=== PATIENT | female | born 1970 | race Hispanic/Latino ===

== ENCOUNTER 2021-03-28 02:18 | Emergency (ER) | payer OTHER ==
[2021-03-28 03:23] VITALS: BP 156/79
--- NOTE | 2021-03-28 04:36 | XRay Report ---
Right hip-2 views INDICATION: right hip pain. COMPARISON: None. IMPRESSION: No acute osseous abnormality. Soft tissues are normal. Normal alignment. No significa nt DJD. Signer Name: Rober Heredia MD Signed: 03/28/2021 4:31 AM Workstation Name: [id number]
--- NOTE | 2021-03-28 04:37 | XRay Report ---
Lumbar spine-3 views INDICATION: lower back pain. COMPARISON: None. IMPRESSION: Normal alignment. Mild multilevel discogenic DJD. No acute osseous or soft tissue abno rmality. Signer Name: Rober Heredia MD Signed: 03/28/2021 4:33 AM Workstation Name: [id number]
--- NOTE | 2021-03-28 05:13 | Emergency Department Report ---
ED Fall HPI - General Chief Complaint: Fall Stated Complaint: FALL AT WORK Source: patient Mode of arrival: Ambulatory - History of Present Illness Initial Comments: Patient is a 50-year-old white female with a history of morbid obesity, chronic osteoarthritis, chronic degenerative disc disease, hypertension, anxiety and depression who presents to the ED with complaint of acute onset severe low back pain and right hip pain after she tripped on an vital signs monitor at work in [facility] about 4 hours ago, and in the process landed on her right hip and lower back. Patient states that although she is ambulatory, the pain is especially worse with movement or ambulation. Patient denies head or neck injuries, loss of consciousness, dizziness, syncope, seizures, chest pain, shortness of breath, numbness and tingling or weakness of lower extremities bilaterally, urinary retention, bowel incontinence, saddle paresthesia, vaginal bleeding or hematuria. MD Complaint: fall, other (Right hip and low back pain) -: Sudden, hour(s) (4) Fall From: standing When Fall Occurred: 4-6 hours [employer] Fall Witnessed: yes, by living facility s Place Fall Occurred: work Loss of Consciousness: none Prolonged Down Time?: no Symptoms Prior to Fall: none Location: pelvis (Right hip), buttocks Severity: severe Severity scale (0 -10): 7 Quality: sharp, aching Context: tripped/slipped Associated Symptoms: denies. denies: headache, neck pain, numbness, weakness, chest paint, shortness of breath, abdominal pain, hematuria, lightheaded, vertigo, confusion - Related Data Previous Rx's Medication Instructions Recorded Last Taken Type HYDROcodone/APAP 5-325 [Burket 1 each PO Q6HR PRN #12 tablet 10/26/16 Unknown Rx 5/325] Ibuprofen [Motrin] 600 mg PO Q8H PRN #20 tablet 10/26/16 Unknown Rx Baclofen 20 mg PO Q12H PRN #20 tablet 03/28/21 Unknown Rx traMADoL [Ultram] 50 mg PO Q6HR PRN #12 tablet 03/28/21 Unknown Rx Allergies Allergy/AdvReac Type Severity Reaction Status Date / Time codeine Allergy HIVES / Verified 10/26/16 08:14 "CRAZY" NSAIDS (Non-Steroidal Allergy Itching Verified 03/28/21 03:34 Anti-Inflamma ED Review of Systems ROS: Stated complaint: FALL AT WORK Other details as noted in HPI Constitutional: denies: chills, fever Eyes: denies: eye pain, eye discharge, vision change ENT: denies: ear pain, throat pain Respiratory: denies: cough, shortness of breath, wheezing Cardiovascular: denies: chest pain, palpitations Endocrine: no symptoms reported Gastrointestinal: denies: abdominal pain, nausea, diarrhea Genitourinary: denies: urgency, dysuria, discharge Musculoskeletal: back pain (Low back pain), arthralgia (Right hip pain), stephon lgia. denies: joint swelling Skin: denies: rash, lesions Neurological: denies: headache, weakness, paresthesias Psychiatric: denies: anxiety, depression Hematological/Lymphatic: denies: easy bleeding, easy bruising ED Past Medical Hx - Past Medical History Previous Medical History?: Yes Hx Hypertension: Yes Hx GERD: Yes Hx Psychiatric Treatment: Yes (ANXIETY, DEPRESSION) Additional medical history: SCIATICA. ALLERGIES. HIGH CHOLESTEROL - Surgical History Past Surgical History?: Yes Additional Surgical History: TONSILLECTOMY. . HYSTERECTOMY. EXPLORATORY (ABD) - Social History Smoking Status: Never Smoker Substance Use Type: None - Medications Home Medications: Home Medications Medication Instructions Recorded Confirmed Last Taken Type HYDROcodone/APAP 5-325 [Burket 1 each PO Q6HR PRN #12 tablet 10/26/16 Unknown Rx 5/325] Ibuprofen [Motrin] 600 mg PO Q8H PRN #20 tablet 10/26/16 Unknown Rx Baclofen 20 mg PO Q12H PRN #20 tablet 03/28/21 Unknown Rx traMADoL [Ultram] 50 mg PO Q6HR PRN #12 tablet 03/28/21 Unknown Rx ED Physical Exam - General Limitations: No Limitations General appearance: alert, in no apparent distress - Head Head exam: Present: atraumatic, normocephalic, normal inspection - Eye Eye exam: Present: normal appearance, PERRL, EOMI Pupils: Present: normal accommodation - ENT ENT exam: Present: normal exam, normal orophraynx, mucous membranes moist, TM's normal bilaterally, normal external ear exam - Neck Neck exam: Present: normal inspection, full ROM - Respiratory Respiratory exam: Present: normal lung sounds bilaterally. Absent: respiratory distress, wheezes, rales, stridor, chest wall tenderness, accessory muscle use, decreased breath sounds, prolonged expiratory - Cardiovascular Cardiovascular Exam: Present: regular rate, normal rhythm, normal heart sounds. Absent: systolic murmur, diastolic murmur, rubs, gallop - GI/Abdominal GI/Abdominal exam: Present: soft, normal bowel sounds. Absent: tenderness, guarding, hyperactive bowel sounds, hypoactive bowel sounds - Extremities Exam Extremities exam: Present: normal inspection, full ROM, tenderness (Palpable right hip tenderness), normal capillary refill - Back Exam Back exam: Present: normal inspection, full ROM, tenderness (Palpable lumbosacral paraspinal musculoskeletal tenderness), muscle spasm, paraspinal tenderness. Absent: CVA tenderness (R), CVA tenderness (L), vertebral tenderness - Neurological Exam Neurological exam: Present: alert, oriented X3, CN II-XII intact, normal gait, reflexes normal - Psychiatric Psychiatric exam: Present: normal affect, normal mood - Skin Skin exam: Present: warm, dry, intact, normal color. Absent: rash ED Course Vital Signs 03/28/21 03/28/21 03/28/21 03:04 05:26 05:27 Temperature 98.9 F Pulse Rate 92 H Respiratory 18 18 18 Rate Blood Pressure 156/79 O2 Sat by Pulse 98 Oximetry 03/28/21 03/28/21 05:35 05:43 Temperature Pulse Rate Respiratory 18 18 Rate Blood Pressure O2 Sat by Pulse 97 Oximetry ED Medical Decision Making - Radiology Data Radiology results: report reviewed, image reviewed [address] [address] XRay Report Signed Patient: STEPHANIE PATEL MR#: [id number] : 1970 Acct:[id number] Age/Sex: 50 / F ADM Date: 03/28/21 Loc: ED Attending Dr: Ordering Physician: AURELIA GRANADOS MD Date of Service: 03/28/21 Procedure(s): XR spine lumbosacral 2-3V Accession Number(s): [id number] cc: ED MD ROBERTA Fluoro Time In Minutes: Lumbar spine-3 views INDICATION: lower back pain. COMPARISON: None. IMPRESSION: Normal alignment. Mild multilevel discogenic DJD. No acute osseous or soft tissue abnormality. Signer Name: Rober Heredia MD Signed: 03/28/2021 4:33 AM Workstation Name: [id number] Transcribed By: MIKE Dictated By: Rober Heredia MD Electronically Authenticated By: Rober Heredia MD Signed Date/Time: 03/28/21432 DD/ 1 TD/TT: [facility] [address] [place] [address] XRay Report Signed Patient: STEPHANIE PATEL MR#: [id number] : 1970 Acct:[id number] Age/Sex: 50 / F ADM Date: 03/28/21 Loc: ED Attending Dr: Ordering Physician: AURELIA GRANADOS MD Date of Service: 03/28/21 Procedure(s): XR hip 2-3V RT Accession Number(s): [id number] cc: AURELIA GRANADOS MD Fluoro Time In Minutes: Right hip-2 views INDICATION: right hip pain. COMPARISON: None. IMPRESSION: No acute osseous abnormality. Soft tissues are normal. Normal alignment. No significant DJD. Signer Name: Rober Heredia MD Signed: 03/28/2021 4:31 AM Workstation Name: [id number] Transcribed By: MIKE Dictated By: Rober Heredia MD Electronically Authenticated By: Rober Heredia MD Signed Date/Time: 03/28/21430 DD/ 0 TD/TT: - Medical Decision Making This is a 50-year-old white female with a history of morbid obesity, chronic osteoarthritis, chronic degenerative disc disease, hypertension, anxiety and depression who presents to the ED with complaint of acute onset severe low back pain and right hip pain after she tripped on an vital signs monitor at work in [facility] about 4 hours ago, and in the process landed on her right hip and lower back. Patient states that although she is ambulatory, the pain is especially worse with movement or ambulation. In the ED, patient is alert and oriented x3 and is not in any distress. Patient was treated for pain in the ED and L-spine x-ray showed no acute fractures or subluxation but chronic lumbar disc disease. The right hip x-ray showed no acute fractures or subluxation. On reevaluation, patient's pain is well controlled medications. Patient will discharge home on pain medications and advised to follow-up with her primary care physician in 7 to 10 days for reevaluation or return to the ED immediately if symptoms get worse. - Differential Diagnosis Hip contusion; hip fracture; back injury; muscle spasm; muscle strain Critical care attestation.: If time is entered above; I have spent that time in minutes in the direct care of this critically ill patient, excluding procedure time. ED Disposition Clinical Impression: Spasm of muscle of lower back Contusion of right hip and thigh Qualifiers: Encounter type: initial encounter Qualified Code(s): S70.01XA - Contusion of right hip, initial encounter Sprain of right hip Qualifiers: Encounter type: initial encounter Qualified Code(s): S73.101A - Unspecified sprain of right hip, initial encounter Disposition: TO HOME OR SELFCARE Is pt being admited?: No Does the pt Need Aspirin: No Condition: Stable Instructions: Muscle Cramps and Spasms, [id number], Back Injury Prevention, [id number], Contusion, [id number] Additional Instructions: The x-ray of your lumbar spine showed no acute fractures or subluxations but chronic degenerative lumbar disc disease. Right hip x-ray also showed no acute fractures and subluxations. Therefore your injuries are likely musculoskeletal following the fall at work. Therefore take pain medications as needed, drink plenty of fluids and follow-up with your primary care physician in 5 to 7 days for reevaluation. Return to the ED immediately if symptoms get worse. Prescriptions: Baclofen 20 mg PO Q12H PRN #20 tablet PRN Reason: Muscle Spasm traMADoL [Ultram] 50 mg PO Q6HR PRN #12 tablet PRN Reason: Pain Referrals: [facility] [Provider Group] - 3-5 Days Forms: Work/School Release Form(ED) Time of Disposition: 05:13 Print Language: LAO
[2021-03-28] MEDS ORDERED: ACETAMINOPHEN 500 MG TAB PO ONE (05:15)
[2021-03-28] MEDS ORDERED: traMADol 50 MG TAB PO ONE (05:15)
== END 2021-03-28 05:35 | disposition home or self-care (01) ==
LOC: ED 02:18
DX: S73.191A Other sprain of right hip, initial encounter (principal); M62.830 Muscle spasm of back; M54.5 Low back pain; I10 Essential (primary) hypertension; K21.9 Gastro-esophageal reflux disease without esophagitis; F41.9 Anxiety disorder, unspecified; F32.9 Major depressive disorder, single episode, unspecified; Z90.710 Acquired absence of both cervix and uterus; Z98.890 Other specified postprocedural states; Z88.5 Allergy status to narcotic agent; Z79.899 Other long term (current) drug therapy; X58.XXXA Exposure to other specified factors, initial encounter; Y93.89 Activity, other specified; Y92.89 Other specified places as the place of occurrence of the external cause; Y99.8 Other external cause status
CPT/HCPCS: 72100; 99283